=== PATIENT | male | born 1985 | race Asian ===

== ENCOUNTER 2020-06-03 20:11 | Emergency (ER) | payer BC ==
[~2020-06-03] VITALS: Ht 165.1 cm; Wt 59.0 kg
[2020-06-03 20:49] VITALS: BP 107/62; TEMP 99.3
== END 2020-06-03 20:49 | disposition home or self-care (01) ==
LOC: ED 20:11
DX: M75.51 Bursitis of right shoulder (principal)
CPT/HCPCS: 96372; 99283; J1885